=== PATIENT | female | born 1980 | race Caucasian/White ===

== ENCOUNTER 2017-02-21 21:57 | Emergency (ER) | payer BC ==
[~2017-02-21] VITALS: Ht 160 cm; Wt 64.0 kg
[~2017-02-21 21:57] MED LIST: CLC100 PO; MTRUNK PO; PRENTAB26 PO; TYLUNK PO
[2017-02-21 22:05] VITALS: BP 120/83; TEMP 36.6; Ht 160 cm; Wt 64.0 kg
[2017-02-21] MEDS ORDERED: AMOXICIL/CLAVU 875MG HOME PACK PO STA (22:51)
[2017-02-21] MEDS ORDERED: DIPHTHERIA/TETANUS/PERTUSSIS 0.5 ML SYR/VIAL IM. ONE (23:00)
[2017-02-21] MEDS ORDERED: XYLOCAINE 1%/SOD BICARB 20 ML VIAL INFIL STA (23:42)
[2017-02-21] MEDS ORDERED: XYLOCAINE 1%/SOD BICARB 20 ML VIAL INFIL ONE (23:43)
[2017-02-21] MEDS ORDERED: AMOX875T PO (23:46)
--- NOTE | 2017-02-21 23:46 | EMERGENCY ROOM VISIT NOTE ---
ED Visit Note First contact with patient: 22:34 Chief Complaint: "Right hand, fourth digit injury due to dog fight". History of Present Illness: This patient is a 36 her female who presents to the Emergency Department via private vehicle for evaluation of their right fourth digit laceration. Patient sustained the laceration just prior to arrival while trying to separate her dogs were fighting. They report a moderate amount of bleeding initially. They deny any numbness or tingling into the distal extremity. They report no decreased range of motion of the affected digit. She is unsure of her tetanus is up-to-date. Both of her dogs are up-to-date on vaccinations. Medications: As noted below Allergies: None PMH: No pertinent SHx: Patient lives locally with family ROS: All pertinent positive and negative review of systems are appropriately documented in the History of Present Illness. Physical Exam: VITAL SIGNS - Vital signs and nursing notes were reviewed. GENERAL -36-year-old female appearing her stated age who is in no acute distress. Communicates well with provider and answers questions appropriately. SKIN - There is a 2 cm long laceration noted to the ventral aspect of the right fourth digit. This is over the finger pad. There is also a small subcentimeter laceration that is superficial on the dorsal aspect. The edges gape apart with traction. No foreign bodies appreciated. Upon further examination there are no deep structures including vessel, tendon, or bony structures appreciated. There is no active bleeding noted. MUSCULOSKELETAL - Laceration as described above. +5/5 strength appreciated of the affected digit. Full range of motion of the affected digit. NEUROLOGIC -she is neurovascularly intact in this region. VASCULAR - Capillary refill was brisk. IMAGING: Finger x-ray as interpreted by myself, no acute fracture, dislocation or retained foreign body. ED Course: Patient was seen and evaluated by myself. Risks and benefits of performing primary wound closure versus no repair were discussed with the patient who verbalizes understanding. Verbal consent was obtained prior to performing the procedure. My physician fleet administrative assistant student did have consent from the patient to cleanse, anesthetized and surgical close the wound. Under my direct supervision , 4 cc of 1% buffered lidocaine was used to perform a digital block of the right fourth digit. The wound was cleansed and prepped in the typical sterile fashion utilizing normal saline and Betadine. She denied chance of . The wound was sterilely draped. Once proper anesthetization was established, the wound was further examined and demonstrated no deep involvement. The wound was copiously irrigated with normal saline and Betadine. The wound was closed using 2 simple, 5-0 nylon sutures with the wound edges being well approximated but yet left loosely approximated to allow drainage over concern for the likelihood of potential infection developing secondary to dog bite. Patient was educated she was at a very high risk for infection given the nature of the wound. She'll be given a tetanus shot today. She also be started upon Augmentin 875 twice a day 5 days. Patient tolerated the procedure well. No complications were met. The wound was cleansed and dressed with a Bacitracin dressing. A metal splint was applied to the finger for comfort. Patient received their Adacel vaccination. Patient educated on worrisome symptoms for return visit to the Emergency Department. Patient discharged to home in good condition. In the evaluation and treatment of this patient, the following differential diagnoses were considered: Finger Fracture, Finger Dislocation, Finger Sprain, Finger Contusion, Jersey Finger, or Mallet Finger. Current/Historical Medications Scheduled Amoxicillin & Pot Clavulanate (Augmentin 875-125 mg), 1 TAB PO BID Allergies Coded Allergies: No Known Allergies (Verified , ., 02/21/17) Vital Signs Date Time Temp Pulse Resp B/P (MAP) Pulse Ox O2 Delivery O2 Flow Rate FiO2 02/22/17 00:16 68 18 99 02/21/17 22:05 36.6 87 18 120/83 99 Room Air Medications Administered Medications (Trade) Dose Ordered Sig/Gilbert Route Start Time Stop Time Status Last Admin Dose Admin Amoxicillin/ Clavulanate Potassium (Augmentin 875MG Home Pack) 1 homepack UD STAT PO 02/21/17 22:51 02/21/17 22:53 DC 02/21/17 22:51 1 HOMEPACK Diphtheria/ Pertussis/Tetanus Vacc (Adacel Inj) 0.5 ml ONCE ONCE IM. 02/21/17 23:00 02/21/17 23:01 DC 02/21/17 23:00 0.5 ML Departure Information Impression Primary Impression: Laceration Additional Impression: Dog bite Dispostion Home / Self-Care Condition GOOD Prescriptions Amoxicillin & Pot Clavulanate (Augmentin 875-125 mg) 1 Tab Tab 1 TAB PO BID for 4 Days, #8 TAB Prov: Denis Tang PA-C 02/21/17 Referrals No Doctor, Assigned (PCP) Patient Instructions [facility] Additional Instructions Discharge Instructions: You have received sutures on your finger. These sutures are NOT dissolvable and WILL need to be removed by a health care provider in 10-12 days. You can return to the Emergency Department or contact your Primary Care Provider to have the sutures removed. Because this is a dog bite, you are at a very high risk for infection. To help prevent this we are going to provide you with Augmentin. This is an antibiotic. This is one tablet every 12 hours for 5 days. Because your pharmacy is closed you were provided with the first 24 hour supply here with the remainder sent to your pharmacy for supervisor picking crew tomorrow. Please wear the splint for comfort until the sutures are removed. Proper wound care is essential for adequate wound healing and infection prevention. You can shower and clean the wound with soap and water. Do not scour over the wound, pat dry with a towel. Do not submerse the wound (i.e. bathe or dish wash) until the sutures have been removed. You can use an antibiotic ointment with a dressing over the wound for the next 3-4 days. After this time you may leave the wound dry and open to the air. If crust develops over the wound you can use a Q-tip to apply a 1:1 peroxide:water solution to clean the wound. Look for signs of infection of the wound including: increased pain, swelling, foul discharge, streaking, or increased temperature. If any of these are noticed you should return to the Emergency Department for further assessment and treatment.!!! As with any laceration you may have received nerve damage to the surrounding tissues. This damage may or may not be permanent. You should keep the area covered with sunscreen for the first 6 months to 1 year when at risk for exposure to help minimize scarring. You can also use scar reducing creams or Vitamin E oil to help minimize scarring. For pain control, you can use the following [id number] medicines (if >12 yo): - Regular strength (325mg/tab) Tylenol (acetaminophen) 2 tabs every 4-6 hours as needed. Do not exceed 12 tablets in a 24 hour period. Avoid taking more than 3 grams (3000 mg) of Tylenol per day. This includes any other sources of acetaminophen you may take on a regular basis. - Regular strength (200 mg/tab) Advil (ibuprofen) 1-2 tabs every 4-6 hours as needed. Do not exceed a dose of 3200 mg per day. Return to the emergency department if your symptoms worsen despite treatment course outlined above. Problem Qualifiers
[2017-02-22 00:16] VITALS: PULSE 68; O2SAT 99
--- NOTE | 2017-02-22 08:00 | DIAGNOSTIC IMAGING REPORT ---
RIGHT FOURTH FINGER 3 VIEWS HISTORY: Dog bite, right 4th digit Right COMPARISON: None. FINDINGS: There is no fracture or dislocation. Mild soft tissue swelling and a small laceration within the distal ring finger. No radiopaque foreign bodies. IMPRESSION: No fractures. Mild soft tissue swelling and a small laceration distally. Electronically signed by: Durga Bernal M.D. 02/22/2017 7:59 AM Dictated Date/Time: 02/22/2017 7:58 AM
== END 2017-02-22 00:17 | disposition home or self-care (01) ==
LOC: C.EDB 22:00 → C.EDD 02-22 00:17
DX: S61.214A Laceration without foreign body of right ring finger without damage to nail, initial encounter (principal); W54.0XXA Bitten by dog, initial encounter; Y92.019 Unspecified place in single-family (private) house as the place of occurrence of the external cause

== ENCOUNTER 2017-03-04 15:38 | Emergency (ER) | payer BC ==
[2017-03-04 15:42] VITALS: TEMP 36.7
--- NOTE | 2017-03-04 15:59 | EMERGENCY ROOM VISIT NOTE ---
ED Visit Note First contact with patient: 15:47 CHIEF COMPLAINT: Suture removal This patient returns to the ED today for removal of sutures that were placed 11 days ago. There has been no swelling, redness, or drainage from the wound. The patient feels like the laceration is healing well. REVIEW OF SYSTEMS: Head: No headache, injury or neck pain. Skin: No rash, new lesions, or masses. General: No fever or chills, fatigue, loss of appetite , or significant recent weight gain or loss. PMH: The patient is healthy; there is no significant medical or surgical history. SOCIAL HISTORY: Patient lives at home. PHYSICAL EXAM: Vital Signs: Reviewed Nurse's notes. There is a sutured wound on the Right 4th digit with no signs of infection. There is no erythema, swelling, or tenderness. EMERGENCY DEPARTMENT COURSE: The sutures were removed without any difficulty and there was no separation of the wound edges. Slight epidermal sloughing, I suspect this is secondary to wound healing. She feels of the wound is healing well. She notes minimal dullness/numbness in the distal tip of the finger, which I suspect may be permanent damage secondary to her injury, however did recommend that she follows up with a hand specialist regarding today 's injury. She was provided the number. She certainly invited back to the emergency department with any new/concerning symptoms. Current/Historical Medications No Active Prescriptions or Reported Meds Allergies Coded Allergies: No Known Allergies (Verified , ., 03/04/17) Vital Signs Date Time Temp Pulse Resp B/P (MAP) Pulse Ox O2 Delivery O2 Flow Rate FiO2 03/04/17 15:42 36.7 78 20 120/82 97 Room Air Departure Information Impression Primary Impression: Encounter for removal of sutures Dispostion Home / Self-Care Condition GOOD Prescriptions No Active Prescriptions or Reported Meds Referrals No Doctor, Assigned (PCP) Mickey Bolanos MD Patient Instructions [facility] Additional Instructions DISCHARGE INSTRUCTIONS AND TREATMENT: Wash any remaining crusts off of the wound today and resume your normal activities. As we discussed, the slight numbness sensation in the tip your finger may be permanent, however it certainly is recommended that you follow-up with a hand specialist for further evaluation and management. This is Dr. Bolanos. ( number provided) Please call first thing Monday. Thank you and have a great day!
[2017-03-04 16:11] VITALS: BP 120/82; PULSE 78; O2SAT 97
== END 2017-03-04 16:11 | disposition home or self-care (01) ==
LOC: C.EDB 15:38 → C.EDD 16:11
DX: Z48.02 Encounter for removal of sutures (principal)